=== PATIENT | male | born 1965 | race Caucasian/White ===

== ENCOUNTER 2018-03-03 07:52 | Day surgery (SDC) | payer MEDICAID ==
[~2018-03-03] VITALS: Ht 185.4 cm; Wt 117.0 kg
[2018-03-03] VITALS (8 sets, daily range): BP systolic 97–130; BP diastolic 60–68
[2018-03-03] MEDS ORDERED: LOSA25TA96 PO (08:32)
[2018-03-03] MEDS ORDERED: FOLI0.4T2 PO (08:32)
[2018-03-03] MEDS ORDERED: AMIT-189 PO (08:32)
[2018-03-03] MEDS ORDERED: CARV-50 PO (08:32)
[2018-03-03] MEDS ORDERED: NITR0.4T51 SL (08:32)
[2018-03-03] MEDS ORDERED: FURO-150 PO (08:32)
[2018-03-03] MEDS ORDERED: INSU100C10 SQ (08:32)
[2018-03-03] MEDS ORDERED: CITA-278 PO (08:32)
[2018-03-03] MEDS ORDERED: CLOP75TA35 PO (08:32)
[2018-03-03] MEDS ORDERED: EVOL140S SQ (08:32)
[2018-03-03] MEDS ORDERED: SPIR25TA5 PO (08:32)
[2018-03-03] MEDS ORDERED: ATOR80TA PO (08:32)
[2018-03-03] MEDS ORDERED: ASPI-1264 PO (08:32)
[2018-03-03] MEDS ORDERED: INSU100I31 SQ (08:32)
[2018-03-03] MEDS ORDERED: sod bicarbonate 150mEq in D5W 1,150 ML IV ONE (08:40)
[2018-03-03] MEDS ORDERED: diphenhydrAMINE 25mg capsule PO PRN (08:40)
[2018-03-03] MEDS ORDERED: iohexol 350MG/ML 100ml bottle IV ONE ×2 (08:41→09:57)
[2018-03-03] MEDS ORDERED: LIDOcaine 1% (10mg/ml)w/preservative injection 20ml MDV ONE (08:41)
[2018-03-03] MEDS ORDERED: midazolam 2 mg/2 ml injection ONE (08:41)
[2018-03-03] MEDS ORDERED: iohexol 350 MG/ML 50ML vial IV ONE (08:41)
[2018-03-03] MEDS ORDERED: heparin 1,000unit/ml 10ml vial 10 ML ONE (08:41)
[2018-03-03] MEDS ORDERED: fentaNYL/PF 50MCG/1 ML 2ML syringe ONE (08:41)
[2018-03-03 08:48] LABS: BASOPHILS # (AUTO) 0.1 X10'3 (0-0.2); BASOPHILS % (AUTO) 0.5 % (0-1); EOSINOPHILS # (AUTO) 0.7 X10'3 (0-0.9); EOSINOPHILS % (AUTO) 5.5 % (0-6); HEMATOCRIT 41.1 % (42.0-52.0); HEMOGLOBIN 13.8 g/dl (14.0-17.9); LYMPHOCYTES # (AUTO) 3.7 X10'3 (1.1-4.8); MEAN CORPUSCULAR HEMOGLOBIN 28.4 PG (27.0-31.0); MEAN CORPUSCULAR HGB CONC 33.6 % (33.0-36.5); MEAN CORPUSCULAR VOLUME 84.5 FL (78-98); MEAN PLATELET VOLUME 9.6 FL (7.4-10.4); MONOCYTES # (AUTO) 0.7 X10'3 (0-0.9); MONOCYTES % (AUTO) 5.3 % (2-12); NEUTROPHILS # (AUTO) 7.6 X10'3 (1.8-7.7); NEUTROPHILS % (AUTO) 59.7 % (42-75); PLATELET COUNT 216 X10'3 (140-440); RED BLOOD COUNT 4.86 X10'6 (4.70-6.10); RED CELL DISTRIBUTION WIDTH 13.7 % (11.5-14.5); WHITE BLOOD COUNT 12.8 X10'3 (4.5-11.0)
[2018-03-03 08:58] LABS: ALBUMIN 2.5 G/DL (3.4-5.0); ANION GAP 9 (8-16); BLOOD UREA NITROGEN 12 MG/DL (7-18); BUN/CREATININE RATIO 10.5 (5.4-32.0); CALCIUM 8.5 MG/DL (8.5-10.1); CHLORIDE 98 MMOL/L (99-107); CREATININE 1.14 MG/DL (0.60-1.10); GLUCOSE 292 MG/DL (70-104); MAGNESIUM 1.5 MG/DL (1.5-2.4); POTASSIUM 3.2 MMOL/L (3.5-5.1); SODIUM 135 MMOL/L (135-145); TOTAL CARBON DIOXIDE 27.6 MMOL/L (24-32); eGFR 67 ML/MIN
[2018-03-03 09:37] LABS: PROTHROMBIN TIME 10.4 SECONDS (9.0-12.0)
== END 2018-03-03 14:20 | disposition home or self-care (01) ==
LOC: SSTAY O 07:52
PROVIDERS: ATTEND Internal Medicine Cardiovascular Disease
DX: I70.211 Atherosclerosis of native arteries of extremities with intermittent claudication, right leg (principal); I42.0 Dilated cardiomyopathy; E11.9 Type 2 diabetes mellitus without complications; I10 Essential (primary) hypertension; E78.5 Hyperlipidemia, unspecified; F10.21 Alcohol dependence, in remission; F17.210 Nicotine dependence, cigarettes, uncomplicated; Z79.82 Long term (current) use of aspirin; Z79.4 Long term (current) use of insulin; Z86.73 Personal history of transient ischemic attack (TIA), and cerebral infarction without residual deficits; Z95.5 Presence of coronary angioplasty implant and graft; Z88.8 Allergy status to other drugs, medicaments and biological substances; Z79.899 Other long term (current) drug therapy; Z98.890 Other specified postprocedural states; Z82.49 Family history of ischemic heart disease and other diseases of the circulatory system; Z83.3 Family history of diabetes mellitus
CPT/HCPCS: 36140; 36246; 36415; 37225; 75716; 80048; 82948; 83735; 85025; 85610; 93005; A6257; C1714; C1760; C1769; C1894; C2623; J1644; J2001; J2250; J3010; Q9967; 37224; 99152; 99153; A4620